=== PATIENT | female | born 1970 | race Caucasian/White ===

== ENCOUNTER → 2016-10-17 | Outpatient (CLI) | payer OTHER | LOC: CIMAGING 15:51 | PROVIDERS: ATTEND Family Medicine | DX: I82.611 Acute embolism and thrombosis of superficial veins of right upper extremity (principal); M79.601 Pain in right arm | CPT/HCPCS: 93971-PO ==

== ENCOUNTER 2016-11-11 18:35 | Emergency (ER) | payer OTHER ==
[2016-11-11 19:12] VITALS: TEMP 98.8
--- NOTE | 2016-11-11 19:18 | EDPHY ---
H & P Stated Complaint: left inner forearm pain and swelling Time Seen by Provider: 11/11/16 19:06 HPI/ROS: CHIEF COMPLAINT: Left forearm pain HISTORY OF PRESENT ILLNESS: This is a 46-year-old female who started on control pills 1 month ago. 2 weeks ago she was diagnosed with right forearm superficial thrombosis and given instructions concerning symptomatic treatment. She presents today with pain involving her left forearm. She also feels some irregularity along the blood vessel of the left forearm. She has pain with wrist and finger movement on the left. She has not taken any pain medications today. No trauma to either arm. She denies calf pain or swelling. She has not had shortness of breath or chest pain. She does not know about her family history of venous thromboembolism. She believes that a grandfather might have had a blood clot. Her mother was given Coumadin during an ICU stay, but she is not certain why. REVIEW OF SYSTEMS: A ten point review of systems was performed and is negative with the exception of the items mentioned in the HPI. - Personal History LMP (Females 10-55): 22-28 Days Ago Current Tetanus Diphtheria and Acellular Pertussis (TDAP): Yes - Medical/Surgical History Hx Asthma: No Hx Chronic Respiratory Disease: No Hx Diabetes: No Hx Cardiac Disease: No Hx Renal Disease: No Hx Cirrhosis: No Hx Alcoholism: No Hx HIV/AIDS: No Hx Splenectomy or Spleen Trauma: No Other PMH: BIPOLAR/ANXIETY/FIBROMYALGIA/MIGRAINES/TYPE II DIABETES,blood clot right forearm 1 month ago. TONSILS,APPY, C SECTION X2 - Social History Smoking Status: Never smoked Additional Social History: She works as a psychotherapist. She has 3 children. - Physical Exam Exam: General Appearance: Alert. Vital signs reviewed. Eyes: Pupils equal and round, no conjunctival injection, no discharge. Anicteric. Neck: No lymphadenopathy, supple. Respiratory: Lungs are clear to auscultation; no wheezes, rales, or rhonchi. Cardiovascular: Regular rate and rhythm; no murmur, rub, or gallop. Gastrointestinal: Abdomen is soft and nontender, no masses or organomegaly, bowel sounds normal. Skin: Warm and dry, no rashes on exposed skin, normal color. Extremities: Palpable regular cord along the anterior distal left forearm Neurological: Alert and oriented. Moving all four extremities easily and equally. Pulses: 2+ radial pulses bilaterally. Psychiatric: Normal affect. Constitutional: Initial Vital Signs Temperature (C) 37.1 C 11/11/16 19:07 Heart Rate 73 11/11/16 19:07 Respiratory Rate 16 11/11/16 19:07 Blood Pressure 112/69 11/11/16 19:07 O2 Sat (%) 95 11/11/16 19:07 O2 Delivery Mode Room Air Allergies/Adverse Reactions: bupropion HCl [From Wellbutrin] Allergy (Severe, Verified 11/11/16 19:03) Other-Enter Comments erythromycin base [Erythromycin Base] Allergy (Intermediate, Verified 11/11/16 19:03) Vomiting Home Medications: Medication Instructions Recorded Fluoxetine Hcl [Prozac] 80 cap PO DAILY 10/11/10 OLANZAPINE [ZYPREXA 20 mg] 20 mg PO HS 12/04/12 [place] Aspartate 11/11/16 Medical Decision Making - Diagnostics Imaging: Discussed imaging studies w/ will call order clerk Radiologist ED Course/Re-evaluation: Ultrasound shows was likely very superficial venous thrombus in the left forearm , below the antecubital fossa. I discussed the ultrasound results with the patient. Having received a similar diagnosis 2 weeks ago she is familiar with the treatment of superficial thrombophlebitis. I am recommending that she discontinue her control pills, given her recent thrombophlebitis. She will discuss this with her OBGYN. She will also follow up with her primary care physician, who might consider additional blood work to assess for coagulopathy. Danger signs have been reviewed with the patient. Differential Diagnosis: I considered a differential diagnosis that includes but was not limited to deep venous thrombosis, superficial thrombophlebitis, IV drug abuse (no evidence for this), lymphangitis, cellulitis, and abscess. There is nothing to indicate infection. Departure - Departure Disposition: Home, Routine, Self-Care Clinical Impression: Superficial thrombophlebitis Qualifiers: Superficial thrombophlebitis-Involved body area: upper extremity Laterality: left Qualified Code(s): I80.8 - Phlebitis and thrombophlebitis of other sites Condition: Good Instructions: Superficial Thrombophlebitis (ED) Additional Instructions: Adult Pain & Fever Control: We recommend Acetaminophen (Tylenol) and Ibuprofen (Motrin,Advil) for pain and fever control. When fever is high or pain severe, both drugs can be used at the same time, but at different intervals. Please note the time differences. Your dose is: Acetaminophen 650mg every 4 to 6 hours Ibuprofen formg every 8 hours with food OR Note: do not take Acetaminophen with Hydrocodone (Vicodin, Lortab) or Oycodone (Percocet). These medications also contain Acetaminophen. No more than 3000mg of Acetaminophen should be taken in 24 hours (for an adult). Consult OBGYN about discontinuing your control pills. Please also follow up with Dr. Dempsey. Referrals: Maria De Jesus Dempsey MD [Primary Care Provider] - As per Instructions
[2016-11-11 21:51] VITALS: BP 118/72; PULSE 72; RESP 14; O2SAT 96
== END 2016-11-11 21:37 | disposition home or self-care (01) ==
LOC: CED 18:35
DX: I80.8 Phlebitis and thrombophlebitis of other sites (principal); E11.9 Type 2 diabetes mellitus without complications
CPT/HCPCS: 93971-PO

== ENCOUNTER → 2016-12-07 | Outpatient (CLI) | payer OTHER ==
[~2016-12-07] MED LIST: DEPO METHYLPREDNISOLONE 40 MG/ML SDV ONE; IOPAMIDOL (ISOVUE 370) 100 ML BTL IV ONE; LIDOCAINE 1% 300 MG/30 ML SDV ONE; ROPIVACAINE HCL 150 MG/30 ML INJ ONE
== END ==
LOC: FIMAGING 10:17
PROVIDERS: ATTEND Orthopaedic Surgery
PROC: 3E0U3BZ Introduction of Anesthetic Agent into Joints, Percutaneous Approach (ICD-10-PCS; principal; 2016-12-07)
PROC: 3E0U33Z Introduction of Anti-inflammatory into Joints, Percutaneous Approach (ICD-10-PCS; principal; 2016-12-07)
DX: M25.551 Pain in right hip (principal)
CPT/HCPCS: 20610; J1030; J2795; Q9967

== ENCOUNTER 2016-12-17 08:23 | Emergency (ER) | payer OTHER ==
[2016-12-17 08:32] VITALS: RESP 20
--- NOTE | 2016-12-17 08:41 | EDPHY ---
H & P Stated Complaint: woke with L calf pain x 3 days; no trauma Time Seen by Provider: 12/17/16 08:32 HPI/ROS: CHIEF COMPLAINT: Left calf pain HISTORY OF PRESENT ILLNESS: The patient is a 46-year-old female who comes to the emergency department complaining of mild left calf cramping and pain. No swelling or edema. No erythema. She has had the symptoms for about 3 days unprovoked. She was concerned about DVT because she has a history of bilateral superficial thrombophlebitis in her arms that she assumed was from her control pill. She discontinued the pill but then got a Depo shot about a month ago. No abdominal pain. No chest pain or shortness of breath. REVIEW OF SYSTEMS: Constitutional: denies: chills, fever, recent illness, recent injury EENTM: denies: blurred vision, double vision, nose congestion Respiratory: denies: cough, shortness of breath Cardiac: denies: chest pain, irregular heart rate, lightheadedness, palpitations Gastrointestinal/Abdominal: denies: abdominal pain, diarrhea, nausea, vomiting, blood streaked stools Genitourinary: denies: dysuria, frequency, hematuria, pain Musculoskeletal: See HPI Skin: denies: lesions, rash, jaundice, bruising Neurological: denies: headache, numbness, paresthesia, tingling, dizziness, weakness Hematologic/Lymphatic: denies: blood clots, easy bleeding, easy bruising Immunologic/allergic: denies: HIV/AIDS, transplant EXAM: GENERAL: Well-appearing, well-nourished and in no acute distress. HEAD: Atraumatic, normocephalic. EYES: Pupils equal round and reactive to light, extraocular movements intact, sclera anicteric, conjunctiva are normal. ENT: TMs normal, nares patent, oropharynx clear without exudates. Moist mucous membranes. NECK: Normal range of motion, supple without lymphadenopathy or JVD. LUNGS: Breath sounds clear to auscultation bilaterally and equal. No wheezes rales or rhonchi. HEART: Regular rate and rhythm without murmurs, rubs or gallops. ABDOMEN: Soft, nontender, normoactive bowel sounds. No guarding, no rebound. No masses appreciated. BACK: No CVA tenderness, no spinal tenderness, step-offs or deformities EXTREMITIES: Left calf pain, no swelling, negative Homans NEUROLOGICAL: Cranial nerves II through XII grossly intact. Normal speech, normal gait. 5/5 strength, normal movement in all extremities, normal sensation PSYCH: Normal mood, normal affect. SKIN: Warm, dry, normal turgor, no visible rashes or lesions. Source: Patient Exam Limitations: No limitations - Personal History LMP (Females 10-55): Extended Cycle BCP/Inj Current Tetanus/Diphtheria Vaccine: Yes - Medical/Surgical History Hx Asthma: No Hx Chronic Respiratory Disease: No Hx Diabetes: No Hx Cardiac Disease: No Hx Renal Disease: No Hx Cirrhosis: No Hx Alcoholism: No Hx HIV/AIDS: No Hx Splenectomy or Spleen Trauma: No Other PMH: Blood Clots B Arms. BIPOLAR/ANXIETY/FIBROMYALGIA/MIGRAINES/TYPE II DIABETES,TONSILS,APPY, C SECTION X2 - Social History Smoking Status: Never smoked Alcohol Use: Sober Drug Use: None Constitutional: Initial Vital Signs Temperature (C) 36.7 C 12/17/16 08:26 Heart Rate 82 12/17/16 08:26 Respiratory Rate 20 12/17/16 08:26 Blood Pressure 107/80 12/17/16 08:26 O2 Sat (%) 87 L 12/17/16 08:26 O2 Delivery Mode Room Air Allergies/Adverse Reactions: bupropion HCl [From Wellbutrin] Allergy (Severe, Verified 12/17/16 08:32) Other-Enter Comments erythromycin base [Erythromycin Base] Allergy (Intermediate, Verified 12/17/16 08:32) Vomiting Home Medications: Medication Instructions Recorded FLUoxetine 12/17/16 [place] Carbonate 12/17/16 Rivaroxaban [Xarelto 15mg (*)] 15 mg PO DAILY #42 tab 12/17/16 Rivaroxaban [Xarelto] 20 mg PO DAILY #10 tab 12/17/16 Zyprexa 12/17/16 clonIDINE 12/17/16 oxyCODONE/APAP 5/325 [Percocet 1 - 2 tab PO Q4H PRN #10 tab 12/17/16 5/325 (*)] Medical Decision Making - Diagnostics Imaging Results: Imaging Impressions Extremity Venous Study 12/17/16 08:39 Impression: Positive deep venous thrombosis in a left calf peroneal vein. Findings and recommendations discussed with Emergency Department physician, JAMES BE at 9:38 hour, 12/17/2016. Final report concurs with initial preliminary interpretation. ED Course/Re-evaluation: 9:50 a.m. we discussed the ultrasound results. I will obtain baseline lab work instruct the patient on Xarelto. She is happy with this because she is very afraid of Coumadin. She states that her mom was allergic to Coumadin. She does have some concern about the cost of Xarelto. We discussed the 1st month free program and will give her a coupon. She will then follow up with her Dr. Maria De Jesus Dempsey for continued treatment. She is also asking about coagulopathy testing which I will defer to her primary doctor. 10:50 a.m. we discussed the lab results. We discussed medication and side effects. We have consulted case management to assist. Differential Diagnosis: Partial list of the Differential diagnosis considered include but were not limited to; DVT, muscle cramps, contusion and although unlikely based on the history and physical exam, I also considered ischemia, dissection, infection. I discussed these differential diagnoses and the plan with the patient as well as the usual and expected course. The patient understands that the diagnosis is provisional and that in medicine we are not always correct and that further workup is often warranted. Usual and customary warnings were given. All of the patient's questions were answered. The patient was instructed to return to the emergency department should the symptoms at all worsen or return, otherwise to followup with the physician as we discussed. - Data Points Laboratory Results: Laboratory Results 12/17/16 10:04 12/17/16 10:04 12/17/16 12/17/16 12/17/16 10:04 10:04 10:04 WBC 8.45 10^3/uL 10^3/uL (3.80-9.50) RBC 3.97 10^6/uL L 10^6/uL (4.18-5.33) Hgb 12.0 g/dL L g/dL (12.6-16.3) Hct 34.8 % L % (38.0-47.0) MCV 87.7 fL fL (81.5-99.8) MCH 30.2 pg pg (27.9-34.1) MCHC 34.5 g/dL g/dL (32.4-36.7) RDW 12.4 % % (11.5-15.2) Plt Count 221 10^3/uL 10^3/uL (150-400) MPV 9.0 fL fL (8.7-11.7) Neut % (Auto) 70.9 % % (39.3-74.2) Lymph % (Auto) 21.9 % % (15.0-45.0) [place] % (Auto) 5.6 % % (4.5-13.0) Eos % (Auto) 0.7 % % (0.6-7.6) Baso % (Auto) 0.4 % % (0.3-1.7) Nucleat RBC Rel Count 0.0 % % (0.0-0.2) Absolute Neuts (auto) 6.00 10^3/uL 10^3/uL (1.70-6.50) Absolute Lymphs (auto) 1.85 10^3/uL 10^3/uL (1.00-3.00) Absolute Monos (auto) 0.47 10^3/uL 10^3/uL (0.30-0.80) Absolute Eos (auto) 0.06 10^3/uL 10^3/uL (0.03-0.40) Absolute Basos (auto) 0.03 10^3/uL 10^3/uL (0.02-0.10) Absolute Nucleated RBC 0.00 10^3/uL 10^3/uL (0-0.01) Immature Gran % 0.5 % % (0.0-1.1) Immature Gran # 0.04 10^3/uL 10^3/uL (0.00-0.10) PT 13.5 SEC SEC (12.0-15.0) INR 1.06 (0.83-1.16) APTT 25.2 SEC SEC (23.0-38.0) Sodium 143 mEq/L mEq/L (134-144) Potassium 4.0 mEq/L mEq/L (3.5-5.2) Chloride 113 mEq/L H mEq/L (97-110) Carbon Dioxide 18 mEq/l L mEq/l (22-31) Anion Gap 12 mEq/L mEq/L (8-16) BUN 7 mg/dL mg/dL (7-23) Creatinine 0.7 mg/dL mg/dL (0.6-1.0) Estimated GFR > 60 Glucose 130 mg/dL H mg/dL (70-100) Calcium 9.0 mg/dL mg/dL (8.5-10.4) Total Bilirubin 0.5 mg/dL mg/dL (0.1-1.4) Conjugated Bilirubin 0.4 mg/dL mg/dL (0.0-0.5) Unconjugated Bilirubin 0.1 mg/dL mg/dL (0.0-1.1) AST 18 IU/L IU/L (14-46) ALT 34 IU/L IU/L (9-52) Alkaline Phosphatase 70 IU/L IU/L (38-126) Total Protein 6.8 g/dL g/dL (6.3-8.2) Albumin 3.9 g/dL g/dL (3.5-5.0) Medications Given: Discontinued Medications Rivaroxaban (Xarelto) 15 mg PO ONCE ONE Stop: 12/17/16 09:48 Last Admin: 12/17/16 10:02 Dose: Not Given Departure - Departure Disposition: Home, Routine, Self-Care Clinical Impression: DVT of axillary vein, acute left Condition: Fair Instructions: Rivaroxaban (By mouth), Deep Venous Thrombosis (ED) Additional Instructions: Please go over to the [facility] Emergency Room and ask to see the mental health case manager She will help you get set up with your Xalerlto prescription Referrals: Maria De Jesus Dempsey MD [Primary Care Provider] - 5-7 days, call for appt. Prescriptions: oxyCODONE/APAP 5/325 [Percocet 5/325 (*)] 1 - 2 tab PO Q4H PRN #10 tab PRN Reason: Pain, Severe Rivaroxaban [Xarelto 15mg (*)] 15 mg PO DAILY #42 tab Rivaroxaban [Xarelto] 20 mg PO DAILY #10 tab
[2016-12-17] MEDS ORDERED: RIVAROXABAN 15 MG TAB PO ONE (09:47)
[2016-12-17 10:06] LABS: % IMMATURE GRANULYOCYTES 0.5 % (0.0-1.1); ABSOLUTE IMMATURE GRANULOCYTES 0.04 10^3/uL (0.00-0.10); ADD DIFF? NO; ADD MORPH? NO; ADD SCAN? NO; ATYPICAL LYMPHOCYTE FLAG 0 (0-99); FRAGMENT RBC FLAG 0 (0-99); HEMATOCRIT 34.8 % (38.0-47.0); LEFT SHIFT FLG 0 (0-99); LIPEMIA HEMOLYSIS FLAG 90 (0-99); MEAN CELL HEMOGLOBIN 30.2 pg (27.9-34.1); MEAN CELL HEMOGLOBIN CONCENTR. 34.5 g/dL (32.4-36.7); MEAN CELL VOLUME 87.7 fL (81.5-99.8); PLATELET CLUMPS FLAG 0 (0-99); PLATELET COUNT 221 10^3/uL (150-400); RED BLOOD CELL COUNT 3.97 10^6/uL (4.18-5.33); RED CELL DISTRIBUTION WIDTH 12.4 % (11.5-15.2)
[2016-12-17 10:17] VITALS: BP 94/61; PULSE 78; TEMP 98.8; O2SAT 96
[2016-12-17 10:20] LABS: INR 1.06 (0.83-1.16); PROTIME(PATIENT) 13.5 SEC (12.0-15.0)
[2016-12-17 10:21] LABS: APTT 25.2 SEC (23.0-38.0)
[2016-12-17 10:25] LABS: ALANINE AMINOTRANSFERASE 34 IU/L (9-52); ALBUMIN 3.9 g/dL (3.5-5.0); ALKALINE PHOSPHATASE 70 IU/L (38-126); ANION GAP 12 mEq/L (8-16); ASPARTATE AMINOTRANSFERASE 18 IU/L (14-46); BILIRUBIN,TOTAL 0.5 mg/dL (0.1-1.4); BILIRUBIN-CONJUGATED 0.4 mg/dL (0.0-0.5); BILIRUBIN-UNCONJUGATED 0.1 mg/dL (0.0-1.1); CARBON DIOXIDE 18 mEq/l (22-31); CHLORIDE 113 mEq/L (97-110); CREATININE 0.7 mg/dL (0.6-1.0); GLOMERULAR FILTRATION RATE > 60; GLUCOSE 130 mg/dL (70-100); SODIUM 143 mEq/L (134-144); TOTAL PROTEIN 6.8 g/dL (6.3-8.2)
--- NOTE | 2016-12-17 12:52 | ASMTCMCOM ---
CM Note CM Note Notes: Spoke with patient who came to the [facility] ED from [facility] ED to obtain information and a card for Free 30-day trial of Xarelto. Patient has the Xarelto prescriptions. Patient provided the Xarelto free trial card and was explained how to call and activate the card. Patient says once she activates the card she will take it and the prescriptions to her [facility] in [place]. CM available for further assistance. Date Signed: 12/17/2016 12:52 PM Electronically Signed By:aSloni Dawson
== END 2016-12-17 11:08 | disposition home or self-care (01) ==
LOC: CED 08:23
DX: I82.A12 Acute embolism and thrombosis of left axillary vein (principal); E11.9 Type 2 diabetes mellitus without complications; Z79.01 Long term (current) use of anticoagulants
CPT/HCPCS: 80048-PO; 80076-PO; 85025-PO; 85610-PO; 85730-PO; 93971-PO

== ENCOUNTER 2016-12-21 12:45 | Inpatient (IN) | payer OTHER ==
[2016-12-21] MEDS ORDERED: NS 500 ML IV ONE (12:47)
--- NOTE | 2016-12-21 12:56 | CPEKG ---
Heart Rate: 78 RR Interval: 769 P-R Interval: 172 QRSD Interval: 88 QT Interval: 392 QTC Interval: 447 P [place]: 51 QRS [place]: 69 T Wave [place]: 20 EKG Severity - NORMAL ECG - EKG Impression: SINUS RHYTHM Electronically Signed By: Azul Frederick 21-Dec-2016 14:26:07
[2016-12-21 13:16] LABS: % IMMATURE GRANULYOCYTES 0.3 % (0.0-1.1); ABSOLUTE IMMATURE GRANULOCYTES 0.03 10^3/uL (0.00-0.10); ADD DIFF? NO; ADD MORPH? NO; ADD SCAN? NO; ATYPICAL LYMPHOCYTE FLAG 0 (0-99); FRAGMENT RBC FLAG 0 (0-99); HEMATOCRIT 36.2 % (38.0-47.0); HEMOGLOBIN 12.6 g/dL (12.6-16.3); LEFT SHIFT FLG 0 (0-99); LIPEMIA HEMOLYSIS FLAG 90 (0-99); MEAN CELL HEMOGLOBIN 30.7 pg (27.9-34.1); MEAN CELL HEMOGLOBIN CONCENTR. 34.8 g/dL (32.4-36.7); MEAN CELL VOLUME 88.3 fL (81.5-99.8); PLATELET CLUMPS FLAG 0 (0-99); PLATELET COUNT 266 10^3/uL (150-400); RED CELL DISTRIBUTION WIDTH 12.6 % (11.5-15.2)
[2016-12-21 13:32] LABS: ANION GAP 15 mEq/L (8-16); CALCIUM 9.3 mg/dL (8.5-10.4); CARBON DIOXIDE 16 mEq/l (22-31); CHLORIDE 109 mEq/L (97-110); CREATININE 0.7 mg/dL (0.6-1.0); GLOMERULAR FILTRATION RATE > 60; GLUCOSE 131 mg/dL (70-100); POTASSIUM 3.8 mEq/L (3.5-5.2); SODIUM 140 mEq/L (134-144)
[2016-12-21] MEDS ORDERED: IOPAMIDOL (ISOVUE 370) 100 ML BTL IV ONE (13:42)
--- NOTE | 2016-12-21 13:42 | EDPHY ---
H & P Time Seen by Provider: 12/21/16 12:47 HPI/ROS: HPI Chest pain, shortness of breath. 46-year-old female by private vehicle with her daughter. This patient was diagnosed 3 days ago with a left lower extremity DVT in our emergency department 3 days ago. She has been placed on Xarelto. She states that she developed chest pain which she described initially as left lateral with radiation to the left mid back with associated shortness of breath yesterday afternoon. This persisted an on and off nature through the afternoon and evening. She reports that she woke this morning and felt better but then the pain returned. She reports about 2-3 hours prior to arrival she developed substernal squeezing chest pain, like her heart being squeezed by a fist also with associated shortness of breath and some lightheadedness. ROS: Constitutional: No fever, no chills. No weakness. Eyes: No discharge. No changes in vision. ENT: No sore throat. No nasal congestion or rhinorrhea. Respiratory: No cough. No shortness of breath. Cardiac: No chest pain, no palpitations. Gastrointestinal: No abdominal pain, no vomiting, no diarrhea. Genitourinary: No hematuria. No dysuria or increased frequency with urination. Musculoskeletal: No back pain. No neck pain. No myalgias or arthralgias. Skin: No rashes. Neurological: No headache. No focal weakness or altered sensation. 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 Not on recent anticoagulation up until 3 days ago as above. Bipolar, anxiety, fibromyalgia, type 2 diabetes, migraine headaches, appendectomy, x2. Primary care physician is Dr. Dempsey. The patient denies any history of coagulopathy. She is currently being tested for coagulation problems by her primary care physician. Social history: Nonsmoker. Here with her daughter. Denies alcohol. Physical Exam: General Appearance: Alert, no distress. This patient is responding to questions appropriately and in full sentences. This patient appears well- hydrated and well-nourished. Eyes: Pupils equal and round no pallor or injection. No lid edema, erythema or injection. Respiratory: There are no retractions, lungs are clear to auscultation with good air movement bilaterally. Cardiovascular: Regular rate and rhythm. No murmur. Gastrointestinal: Abdomen is soft and nontender, no masses, bowel sounds normal. No focal tenderness at McBurney's point. No Santiago sign. Neurological: Motor sensory function is grossly intact. Cranial nerves are normal. Gait is normal. Skin: Warm and dry, no rashes. Musculoskeletal: Neck is supple and nontender. Extremities are symmetrical. All joints range without pain or impingement. Psychiatric: No agitation. No depression. Database: EKG: EKG time is 12:55 p.m.; EKG shows a narrow complex normal sinus rhythm with a ventricular rate of 78. The [place], QRS, QT intervals are within normal limits. There are no ST-T wave changes indicative of ischemic or injury pattern. No evidence of right heart strain. Interpreted by me. Imaging: CT angiogram of chest; significant for bilateral pulmonary embolism. Segmental and subsegmental with moderate clot burden. Results were discussed with staff radiologist Dr. Ga Miller. Procedures: Emergency department course: IV placed. She was placed on a panel monitor. Vital signs reviewed and are normal. Vital signs reviewed by myself. 1:45 p.m., patient re-evaluated. Vital signs reviewed and are normal. She denies any chest pain at this time. No shortness of breath at rest. She describes the pain is intermittent in nature as noted above. Waiting on results of CT angiogram. 2:45 p.m., patient resting comfortably at this time. Vital signs reviewed and are normal. Results of CT angiogram discussed with her. Results of blood work reviewed. Plan for admission to our hospitalist service discussed. She is in agreement with this. 2:50 p.m., spoke with Dr. Atkins, admitting hospitalist. She accepts this patient for admission. The patient's remaining emergency department course under my care has been uneventful. She was transferred in stable condition to [facility] by ambulance. Differential Diagnosis: The differential diagnosis on this patient includes but is not limited to pulmonary embolism, acute coronary syndrome, anxiety reaction. This represents a partial list of diagnoses considered. These considerations are based on history, physical exam, past history, reassessment and diagnostic testing. Smoking Status: Never smoked Constitutional: Initial Vital Signs Temperature (C) 36.6 C 12/21/16 12:48 Heart Rate 85 12/21/16 12:48 Respiratory Rate 20 12/21/16 12:48 Blood Pressure 103/83 H 12/21/16 12:48 O2 Sat (%) 98 12/21/16 12:48 O2 Delivery Mode Room Air Allergies/Adverse Reactions: bupropion HCl [From Wellbutrin] Allergy (Severe, Verified 12/21/16 12:53) Other-Enter Comments erythromycin base [Erythromycin Base] Allergy (Intermediate, Verified 12/21/16 12:53) Vomiting Home Medications: Medication Instructions Recorded FLUoxetine 40 mg PO DAILY 12/17/16 [place] Carbonate 450 mg DAILY 12/17/16 Rivaroxaban [Xarelto 15mg (*)] 15 mg PO DAILY #42 tab 12/17/16 Rivaroxaban [Xarelto] 20 mg PO DAILY #10 tab 12/17/16 Zyprexa 10 mg PO DAILY 12/17/16 clonIDINE 15 mg PO BID 12/17/16 Medical Decision Making - Diagnostics Imaging Results: Imaging Impressions Chest/Thorax CTA 12/21/16 12:58 Impression: 1. Bilateral segmental and subsegmental pulmonary emboli, most prominent in the right lung. 2. Small bilateral pleural effusions with basilar atelectasis. 3. Additional findings as above. Findings discussed with Azul Frederick MD 12/21/2016 at 1434 hours. - Data Points Laboratory Results: Laboratory Results 12/21/16 13:10 12/21/16 13:10 12/21/16 12/21/16 12/21/16 Unknown 13:10 13:10 WBC 8.83 10^3/uL 10^3/uL (3.80-9.50) RBC 4.10 10^6/uL L 10^6/uL (4.18-5.33) Hgb 12.6 g/dL g/dL (12.6-16.3) Hct 36.2 % L % (38.0-47.0) MCV 88.3 fL fL (81.5-99.8) MCH 30.7 pg pg (27.9-34.1) MCHC 34.8 g/dL g/dL (32.4-36.7) RDW 12.6 % % (11.5-15.2) Plt Count 266 10^3/uL 10^3/uL (150-400) MPV 9.0 fL fL (8.7-11.7) Neut % (Auto) 71.4 % % (39.3-74.2) Lymph % (Auto) 21.2 % % (15.0-45.0) [place] % (Auto) 6.0 % % (4.5-13.0) Eos % (Auto) 0.8 % % (0.6-7.6) Baso % (Auto) 0.3 % % (0.3-1.7) Nucleat RBC Rel Count 0.0 % % (0.0-0.2) Absolute Neuts (auto) 6.30 10^3/uL 10^3/uL (1.70-6.50) Absolute Lymphs (auto) 1.87 10^3/uL 10^3/uL (1.00-3.00) Absolute Monos (auto) 0.53 10^3/uL 10^3/uL (0.30-0.80) Absolute Eos (auto) 0.07 10^3/uL 10^3/uL (0.03-0.40) Absolute Basos (auto) 0.03 10^3/uL 10^3/uL (0.02-0.10) Absolute Nucleated RBC 0.00 10^3/uL 10^3/uL (0-0.01) Immature Gran % 0.3 % % (0.0-1.1) Immature Gran # 0.03 10^3/uL 10^3/uL (0.00-0.10) Sodium Potassium Chloride Carbon Dioxide Anion Gap BUN Creatinine Estimated GFR Glucose Calcium Creatine Kinase CK-MB (CK-2) Fraction Troponin I Beta HCG, Qual NEGATIVE [place] Pending 12/21/16 13:10 WBC RBC Hgb Hct MCV MCH MCHC RDW Plt Count MPV Neut % (Auto) Lymph % (Auto) [place] % (Auto) Eos % (Auto) Baso % (Auto) Nucleat RBC Rel Count Absolute Neuts (auto) Absolute Lymphs (auto) Absolute Monos (auto) Absolute Eos (auto) Absolute Basos (auto) Absolute Nucleated RBC Immature Gran % Immature Gran # Sodium 140 mEq/L mEq/L (134-144) Potassium 3.8 mEq/L mEq/L (3.5-5.2) Chloride 109 mEq/L mEq/L (97-110) Carbon Dioxide 16 mEq/l L mEq/l (22-31) Anion Gap 15 mEq/L mEq/L (8-16) BUN 11 mg/dL mg/dL (7-23) Creatinine 0.7 mg/dL mg/dL (0.6-1.0) Estimated GFR > 60 Glucose 131 mg/dL H mg/dL (70-100) Calcium 9.3 mg/dL mg/dL (8.5-10.4) Creatine Kinase 59 IU/L IU/L (0-156) CK-MB (CK-2) Fraction < 0.22 ng/mL ng/mL (0.00-4.55) Troponin I < 0.012 ng/mL ng/mL (0.000-0.034) Beta HCG, Qual [place] Medications Given: Discontinued Medications Sodium Chloride (Ns) 500 mls @ 1,000 mls/hr IV EDNOW ONE PRN Reason: Protocol Stop: 12/21/16 13:16 Last Admin: 12/21/16 13:23 Dose: 500 mls Departure - Departure Disposition: [facility] Acute Clinical Impression: History of DVT of lower extremity, Pulmonary embolism, Chest pain Referrals: NONE *PRIMARY CARE P,. [Unknown] - As per Instructions
[2016-12-21 13:44] LABS: TROPONIN I < 0.012 ng/mL (0.000-0.034)
[2016-12-21 13:45] LABS: CREATINE KINASE-MB FRACTION < 0.22 ng/mL (0.00-4.55)
[2016-12-21] MEDS ORDERED: HYDROmorphONE/DILAUDID 1 MG/ML INJ ONE (15:41)
[2016-12-21] MEDS ORDERED: HYDROmorphONE/DILAUDID 1 MG/ML INJ IVP PRN ×2 (15:42→17:17)
[2016-12-21] MEDS ORDERED: HYDROmorphONE/DILAUDID 1 MG/ML INJ IVP ONE (15:44)
[2016-12-21 15:53] LABS: LITHIUM 0.4 mEq/L (0.6-1.2)
[2016-12-21] MEDS ORDERED: PROMETHAZINE HCL 25 MG/ML INJ IVP PRN (17:17)
[2016-12-21] MEDS ORDERED: ONDANSETRON DISINTEGRATING 4 MG TAB PO PRN (17:17)
[2016-12-21] MEDS ORDERED: ALBUTEROL 3 ML DEYVIAL IH PRN (17:17)
[2016-12-21] MEDS ORDERED: ACETAMINOPHEN 325 MG TAB PO PRN (17:17)
[2016-12-21] MEDS ORDERED: ONDANSETRON 4 MG/2 ML VIAL IVP PRN (17:17)
[2016-12-21] MEDS ORDERED: ACETAMINOPHEN/ASA/CAFFEINE 1 EACH TAB PO PRN (18:03)
[2016-12-21] MEDS ORDERED: DIAZEPAM 10 MG TAB PO PRN (18:03)
[2016-12-21] MEDS ORDERED: WARFARIN SODIUM 7.5 MG TAB PO ONE (18:15)
[2016-12-21] MEDS: oxyCODONE IR 5 MG TAB PO PRN ×2 (18:25→21:32)
[2016-12-21] MEDS: OLANZapine DISINTEGR 10 MG TAB PO SCH (20:45)
[2016-12-21] MEDS: LITHIUM CARBONATE ER 450 MG TAB PO SCH (20:45)
[2016-12-21] MEDS: ENOXAPARIN 80 MG/0.8 ML SYR SC SCH (20:46)
--- NOTE | 2016-12-21 23:42 | GHP ---
[f rep st] HISTORY AND PHYSICAL DATE OF ADMISSION: 12/21/2016 CHIEF COMPLAINT: Shortness of breath and chest pain. HISTORY: This is a 46-year-old female with a past medical history that includes bipolar disorder and depression who presents with complaints of chest pain and shortness of breath several days after марина gnosis of a left lower extremity DVT. Patient was started on Xarelto in the ER and states she has be en compliant with that. Regardless, yesterday, she developed chest pain that is present mostly in th e left with radiation to the back and associated shortness of breath. She states she felt as if some one were squeezing her heart. She has never had similar pain in the past. She does have a history o f prior bilateral upper extremity superficial VTEs diagnosed in October and November that were thought to be related to oral contraceptive pills, which she has gone off since then. She has no other history of clots. PAST MEDICAL HISTORY: Includes: 1. Bilateral upper extremity superficial VTE. 2. Left lower extremity DVT diagnosed this week. 3. Depression. 4. Bipolar disorder. 5. Type 2 diabetes, diet controlled. 6. Cervical radiculitis. PAST SURGICAL HISTORY: Includes: 1. Appendectomy. 2. Tonsillectomy. 3. x2. 4. Breast reduction surgery. 5. Ganglion cyst in the wrist. FAMILY HISTORY: She states she has a grandfather with a clotting disorder. SOCIAL HISTORY: Patient is a nonsmoker. She denies significant drinking use. PCP is Dr. Dempsey. REVIEW OF SYSTEMS: A 10-point review of systems is obtained, negative except as per HPI. MEDICATIONS: At home include. 1. Clonidine. 2. Xarelto. 3. Olanzapine. 4. [place]. 5. Ibuprofen. 6. Fluoxetine. 7. Valium. 8. Excedrin. ALLERGIES: Bupropion and erythromycin. PHYSICAL EXAMINATION: VITAL SIGNS: BP 92/54, heart rate 64, respiratory rate 12, O2 sats 93% on elieser m air. Temperature is 37. GENERAL APPEARANCE: Well-developed/well-nourished female. She is awake and alert. She is in no acute distress. EYES: Anicteric. HENT: Oropharynx clear. CARDIOVASCULAR : Regular rate and rhythm, no MRG. PULMONARY: CTA bilaterally. Normal work of breathing. ABDOMEN : Soft, nontender, nondistended. EXTREMITIES: No clubbing, cyanosis, or edema. SKIN: Warm dry we ll perfused. NEURO/PSYCH: Oriented and appropriate. CLINICAL DATA: Labs reviewed. Significant for hematocrit 36.2. Chemistry is unremarkable. Troponi ns less than 0.012 times 2. Chest and thorax CT angiogram, personally reviewed and interpreted, showing bilateral segmental and s ubsegmental PE, most prominent in the right lung. Small bilateral pleural effusions. EKG, personally reviewed and interpreted, shows sinus rhythm. No ischemic changes. ASSESSMENT AND PLAN: This is a 46-year-old female with recently diagnosed deep venous thrombosis pre senting with bilateral pulmonary embolus. 1. Bilateral pulmonary embolus. Patient is hemodynamically stable with a relatively low clot burden and a low Pulmonary Embolism Severity Index score. She will be transitioned to Lovenox and Coumadin per her preference. She does not have significant risk factors for venous thromboembolism and has g one off control pills. She is being worked up through her primary care physician for possible hypercoagulable states and will defer further workup of this to her PCP. 2. Recent deep venous thrombosis as per above. She does not have any significant lower extremity sw elling or pain at this time. 3. Chest pain. Suspect this is related to her clot rather than other etiology. Her troponins have been negative x2 and EKG likewise unremarkable. Patient is quite concerned that there is something w dany with her heart, however, and will get a followup echocardiogram in the morning both to assess fo r any right heart strain and to evaluate for any wall motion abnormality, etc. 4. Depression and bipolar. Will continue her usual psychiatric medications. 5. Type 2 diabetes. This has been diet controlled. Her blood sugars are only mildly elevated here. 6. Disposition: Observation status. I suspect she will need less than 48 hour stay for evaluation and management of above. Patient is new to my care. Old records reviewed, summarized as per HPI and Past Medical History. Ca re plan reviewed with ER physician, including plans for anticoagulation. Further history obtained fr om patient's friend present at bedside. /[id number]/MODL
[2016-12-22] MEDS: oxyCODONE IR 5 MG TAB PO PRN ×3 (01:11→15:05)
[2016-12-22 06:26] LABS: % IMMATURE GRANULYOCYTES 0.2 % (0.0-1.1); ABSOLUTE IMMATURE GRANULOCYTES 0.01 10^3/uL (0.00-0.10); ADD DIFF? NO; ADD MORPH? NO; ADD SCAN? NO; ATYPICAL LYMPHOCYTE FLAG 10 (0-99); FRAGMENT RBC FLAG 0 (0-99); HEMATOCRIT 35.1 % (38.0-47.0); HEMOGLOBIN 11.6 g/dL (12.6-16.3); LEFT SHIFT FLG 0 (0-99); LIPEMIA HEMOLYSIS FLAG 80 (0-99); MEAN CELL HEMOGLOBIN 30.1 pg (27.9-34.1); MEAN CELL VOLUME 91.2 fL (81.5-99.8); MEAN PLATELET VOLUME 9.2 fL (8.7-11.7); PLATELET CLUMPS FLAG 10 (0-99); PLATELET COUNT 229 10^3/uL (150-400); RED BLOOD CELL COUNT 3.85 10^6/uL (4.18-5.33); RED CELL DISTRIBUTION WIDTH 12.7 % (11.5-15.2)
[2016-12-22 06:42] LABS: INR 1.23 (0.83-1.16); PROTIME(PATIENT) 15.5 SEC (12.0-15.0)
[2016-12-22 06:50] LABS: ANION GAP 9 mEq/L (8-16); CALCIUM 8.9 mg/dL (8.5-10.4); CARBON DIOXIDE 21 mEq/l (22-31); CHLORIDE 111 mEq/L (97-110); CREATININE 0.8 mg/dL (0.6-1.0); GLOMERULAR FILTRATION RATE > 60; GLUCOSE 112 mg/dL (70-100); POTASSIUM 3.9 mEq/L (3.5-5.2); SODIUM 141 mEq/L (134-144)
[2016-12-22] MEDS: FLUoxetine 20 MG CAP PO SCH (08:28)
[2016-12-22] MEDS: ENOXAPARIN 80 MG/0.8 ML SYR SC SCH (08:29)
--- NOTE | 2016-12-22 11:16 | CPEKG ---
Heart Rate: 66 RR Interval: 909 P-R Interval: 180 QRSD Interval: 90 QT Interval: 412 QTC Interval: 432 P [place]: 65 QRS [place]: 74 T Wave [place]: 36 EKG Severity - NORMAL ECG - EKG Impression: SINUS RHYTHM Electronically Signed By: Tony Haney 23-Dec-2016 12:03:49
--- NOTE | 2016-12-22 12:02 | HOSPPROG ---
Hospitalist Progress Note Assessment/Plan: # acute PE - BPs lower than normal and symptomatic - will monitor inpatient another night - cont lovenox/warfarin - failed xarelto # bipolar - lithium/prozac - well compensated # DM2 - diet controlled # dispo - inpatient; needs > 2 midnights for treatment of above Subjective: CP better today; dizzy Objective: Vital Signs Temp Pulse Resp BP Pulse Ox 36.7 C 76 18 93/61 L 97 12/22/16 08:00 12/22/16 11:41 12/22/16 11:41 12/22/16 11:41 12/22/16 11:41 Laboratory Results 12/22/16 06:05 12/22/16 06:05 12/21/16 12/22/16 12/23/16 05:59 05:59 05:59 Intake Total 700 Balance 700 PT 15.5 SEC (12.0-15.0) H 12/22/16 06:05 INR 1.23 (0.83-1.16) H 12/22/16 06:05 - Physical Exam Constitutional: no apparent distress, appears nourished Cardiovascular: regular rate and rhythym, no murmur, rub, or gallop Respiratory: no respiratory distress, no rales or rhonchi, clear to auscultation Gastrointestinal: normoactive bowel sounds, soft, non-tender abdomen ICD10 Worksheet Patient Problems: Problems Problem Status Onset History of DVT of lower extremity Acute Pulmonary embolism Acute Chest pain Acute
[2016-12-22] MEDS ORDERED: ENOXAPARIN 80 MG/0.8 ML SYR SC SCH (12:09)
--- NOTE | 2016-12-22 12:32 | ECHO ---
[id number] + + [address] : : [place] [address] : : [phone] + + Adult Echocardiographic Report + -------+ :Name: YUMIKO MOBLEY JStudy Date: 12/22/2016 09:07 AM BP: 102/55 mmHg : : Hospital Admission Number: [id number] Location: bedside: :: 1970 Gender: Female Height: 61 in : :Age: 46 yrs Race: WH Weight: 187 lb : :Reason For Study: eval for RT side strain : : BSA: 1.8 meters2 : :History: PE, chest pain : + -------+ MMode/2D Measurements & Calculations IVSd: 0.77 cm RVDd: 3.1 cm FS: 37.8 % Ao root diam: LVPWd: 0.81 cm LVIDd: 4.7 cm EDV(Teich): 2.5 cm LVIDs: 2.9 cm 101.8 ml ESV(Teich): 32.7 ml EF(Teich): 67.9 % LVLd ap4: 8.6 cm SV(MOD-sp4): EDV(MOD-sp4): 55.0 ml 81.0 ml LVLs ap4: 6.8 cm ESV(MOD-sp4): 26.0 ml EF(MOD-sp4): 67.9 % Normal Measurement Values: + + :LVIDd (3.5-5.7cm) IVSd (0.6-1.1cm) LVPWd (0.6-1.1cm) Aortic Root (2.0-3.7cm)Left Atrium (1.5-4.0cm): :LV Vol(d) (76-115ml) LV Vol(s) (29-48ml) Ejec Fraction (50-65%)PV Paul (0.6- 1.2m/s) TV Paul (0.4-1.0m/s) : :MV E Paul (0.8-1.0m/s)MV A Palu (0.3-1.0m/s)LVOT Paul (0.7-1.2m/s) Asc Ao Paul ( 0.9-1.8m/s) : + + Doppler Measurements & Calculations MV E max paul: Ao V2 max: LV V1 max: PA V2 max: 65.6 cm/sec 150.9 cm/sec 101.7 cm/sec 100.4 cm/sec MV A max paul: Ao max PG: LV V1 max PG: PA max P.2 cm/sec 9.1 mmHg 4.1 mmHg 4.0 mmHg MV E/A: 1.1 MV dec time: 0.15 sec TR max paul: 238.9 cm/sec TR max P.8 mmHg RAP systole: 5.0 mmHg RVSP(TR): 27.8 mmHg Left Ventricle The left ventricle is normal in size and function. There is normal left ventricular wall thickness. Ejection Fraction = 65%. No regional wall motion abnormalities noted. Right Ventricle The right ventricle is normal in size and function. Atria The left atrial size is normal. Right atrial size is normal. Mitral Valve The mitral valve is normal in structure and function. There is no mitral valve stenosis. There is trace to mild mitral regurgitation. Tricuspid Valve The tricuspid valve is normal in structure and function. There is no tricuspid stenosis. There is trace to mild tricuspid regurgitation. Right ventricular systolic pressure is 28mmHg. Aortic Valve The aortic valve is trileaflet. There is no aortic stenosis. There is no aortic insufficiency. Pulmonic Valve The pulmonic valve is not well visualized. Great Vessels The aortic root is normal size. Pericardium/Pleural There is no pericardial effusion. Conclusion A two-dimensional transthoracic echocardiogram with M-mode and Doppler was performed. The left ventricle is normal in size and function. Ejection Fraction = 65%. There is trace to mild mitral regurgitation. There is trace to mild tricuspid regurgitation. Right ventricular systolic pressure is 28mmHg. Final Reading Physician: Isaias Suresh signed on 12/22/2016 12:31 PM Ordering Physician: Mark Turner Performed By: Seema Blackwell
[2016-12-22] MEDS ORDERED: WARFARIN SODIUM 5 MG TAB PO SCH (16:00)
--- NOTE | 2016-12-22 17:36 | ASMTCMCOM ---
CM Note CM Note Notes: Pt. is a 46-year-old woman admitted to the ICU with a pulmonary embolism. Hx. DVT, Bipolar disorder, depression, and Type 2 diabetes. SWer met with Pt. today after Pt. transferred from ICU to PCU. RN asked SWer to meet w/ Pt. about MAPing meds and signing a new MDPOA form. Will attempt on day of d/c to MAP "five days worth of Lovenox". CM to consult w/ MD on day of d/c. Provided MDPOA form to Pt. and explained process. Pt. wanted to wait a bit before filling it out. Instructed Pt. to ask RN for CM or Director Regulatory Affairs if needed assistance filling it out. Discussed how Pt. could access financial power of staff attorney for [place]. Pt. expressed that she would never want her adopted eldest daughter to make decisions for her and that she would likely "steal her personal belongings" if she could. Pt. has two other biological teen children. Pt. likely to be independent at d/c. CM available should further needs arise. Date Signed: 12/22/2016 05:35 PM Electronically Signed By:Saloni Coronado LCSW
[2016-12-22] MEDS: ENOXAPARIN 100 MG/ML SYR SC SCH (21:34)
[2016-12-22] MEDS: LITHIUM CARBONATE ER 450 MG TAB PO SCH (21:46)
[2016-12-22] MEDS: OLANZapine DISINTEGR 10 MG TAB PO SCH (21:46)
[2016-12-23] MEDS ORDERED: ENOXAPARIN 100 MG/ML SYR SC SCH
[2016-12-23 04:45] LABS: INR 1.26 (0.83-1.16); PROTIME(PATIENT) 15.8 SEC (12.0-15.0)
[2016-12-23 07:46] VITALS: BP 104/85; PULSE 86; RESP 16; TEMP 98.1; O2SAT 95
[2016-12-23] MEDS: FLUoxetine 20 MG CAP PO SCH (08:03)
[2016-12-23] MEDS: ENOXAPARIN 100 MG/ML SYR SC SCH (08:03)
--- NOTE | 2016-12-23 08:55 | GDS ---
[f rep st] DISCHARGE SUMMARY DIAGNOSES: 1. Acute pulmonary embolus. 2. Recent diagnosis of lower extremity deep venous thrombosis. 3. Bipolar disorder. 4. Diabetes mellitus type 2. HOSPITAL COURSE: A 46-year-old female, who had recently been diagnosed with a lower extremity DVT, s tarted on Xarelto. A few days after starting this she developed significant chest pain. CT angiogra m showed acute bilateral PEs. Because of this, she has been transitioned to a Lovenox bridge to [facility]. Her pain is much better on the day of discharge. The day before discharge, she had some mildl y low blood pressures which have resolved. She is taking clonidine for menopausal symptoms, 0.1 mg a t night. I have recommended that she break that in half for a few nights, check her blood pressure i n the mornings and titrate back up to 0.1 mg. She is comfortable with this. For her bipolar disorde r, I have not changed her lithium and Prozac, this is well compensated and she is not manic on discha rge. I discussed risks and benefits of anticoagulants. Pharmacy will do warfarin teaching with her. She has been giving herself Lovenox injections in the hospital. FOLLOW UP: Primary care physician for ongoing management, consider a hypercoagulable workup or refer ral to Hematology given her Xarelto failure. BILLING: I spent more than 30 minutes on the day of discharge coordinating care. /[id number]/MODL
--- NOTE | 2016-12-23 10:37 | ASMTCMCOM ---
CM Note CM Note Notes: CM spoke w/ Rose, PAR[place]. Pt is being discharged today. CM met w/ pt to review d/c. [facility] is MAPPing meds for pt (cost for lovanox for 6 days-12 doses is $135). RN has already taught pt how to inject lovanox. Pts friend is picking pt up and bringing her to her car. Pt will f/u with coumadin clinic this Wed. Pt has not completed MDPOA form but will once she has a chance. Pt reports that she will bring it back to [facility] or [facility] PCP's office once completed. CM available for any changes. Date Signed: 12/23/2016 10:36 AM Electronically Signed By:TANMAY Christiansen
--- NOTE | 2016-12-23 12:23 | ASDISCHSUM ---
Discharge Information Plan Status:Home with No Needs Medically Cleared to Leave:12/23/2016 Discharge Date:12/23/2016 11:38 AM CM D/C Disposition:Home, Routine, Self-Care ADT D/C Disposition:Home, Routine, Self-Care Projected Discharge Date:12/23/2016 12:00 AM Transportation at D/C: Discharge Delay Reason: Follow-Up Date:12/23/2016 12:00 AM Discharge Slot: Final Diagnosis: Placement Information Patient Contact Information Contact Name:HEATHER Relationship:Friend Address: Work Phone: City: [facility] Phone: State/[place] Code: Email: Financial Information Financial Class: Primary Plan Desc:MEDICARE INPATIENT Primary Plan Number:[id number] Secondary Plan Desc: Secondary Plan Number: Assessment Information [facility] CM Progress Note CM Note CM Note Notes: Pt. is a 46-year-old woman admitted to the ICU with a pulmonary embolism. Hx. DVT, Bipolar disorder, depression, and Type 2 diabetes. Jassi met with Pt. today after Pt. transferred from ICU to PCU. RN asked Jassi to meet w/ Pt. about MAPing meds and signing a new MDPOA form. Will attempt on day of d/c to MAP "five days worth of Lovenox". CM to consult w/ MD on day of d/c. Provided MDPOA form to Pt. and explained process. Pt. wanted to wait a bit before filling it out. Instructed Pt. to ask RN for CM or Health Coordinator if needed assistance filling it out. Discussed how Pt. could access financial power of civil attorney for [place]. Pt. expressed that she would never want her adopted eldest daughter to make decisions for her and that she would likely "steal her personal belongings" if she could. Pt. has two other biological teen children. Pt. likely to be independent at d/c. CM available should further needs arise. Date Signed: 12/22/2016 05:35 PM Electronically Signed By:Saloni Coronado LCSW [facility] CM Progress Note CM Note CM Note Notes: CM spoke w/ [place] Rose. Pt is being discharged today. CM met w/ pt to review d/c. [facility] is MAPPing meds for pt (cost for lovanox for 6 days-12 doses is $135). RN has already taught pt how to inject lovanox. Pts friend is picking pt up and bringing her to her car. Pt will f/u with coumadin clinic this . Pt has not completed MDPOA form but will once she has a chance. Pt reports that she will bring it back to [facility] or [facility] PCP's office once completed. CM available for any changes. Date Signed: 12/23/2016 10:36 AM Electronically Signed By:TANMAY Christiansen Intervention Information Intervention Type:*Incorrect Registration Date of Service:12/21/2016 05:17 PM Patient Type:Inpatient Staff Member:PARIS Larson Shelly Hours:0.25 Discipline: Severity:1 (0-1 Hours) Comment:Registered inpatient; admit order writ ten for observation status. Intervention Type:*Occurence 72 Date of Service:12/21/2016 05:17 PM Patient Type:Inpatient Staff Member:PARIS Larson Shelly Hours:0.25 Discipline: Severity:1 (0-1 Hours) Comment:Occ 72 for 12/21/2016 as patient discha rged 12/23/2016 0836 9< 2 MN LOS after patie nt admission status changed from observation to inpatient).
== END 2016-12-23 11:38 | disposition home or self-care (01) | DRG 176 ==
LOC: CED 12:45 → CEDHOLD 14:48 → INTOOBSV 14:48 → F2N 17:01 → OBSVTOIN 12-22 11:58 → F2W 12-22 15:56
PROVIDERS: ADMIT Internal Medicine; ATTEND Student in an Organized Health Care Education/Training Program
DX: I26.99 Other pulmonary embolism without acute cor pulmonale (principal); E11.9 Type 2 diabetes mellitus without complications; I82.4Z2 Acute embolism and thrombosis of unspecified deep veins of left distal lower extremity; F31.9 Bipolar disorder, unspecified
CPT/HCPCS: 71275-PO; 80048-PO; 82550-PO; 82553-PO; 84484-PO; 84703-PO; 85025-PO; 96374; 97161-GP; G0378; G8978-GP-CH; G8979-GP-CH; G8980-GP-CH; J1170; J1650; Q9967

== ENCOUNTER → 2017-01-25 | Outpatient (CLI) | payer OTHER | LOC: FIMAGING 15:30 | DX: R90.89 Other abnormal findings on diagnostic imaging of central nervous system (principal); R41.3 Other amnesia ==

== ENCOUNTER → 2017-06-17 | Outpatient (CLI) | payer OTHER ==
[~2017-06-17] MED LIST changes: +DEPO METHYLPREDNISOLONE 80 MG/ML SDV ONE
== END ==
LOC: FIMAGING 10:13
PROVIDERS: ATTEND Orthopaedic Surgery
DX: M16.11 Unilateral primary osteoarthritis, right hip (principal)
CPT/HCPCS: 20610; J1040; J2795; Q9967; J1030

== ENCOUNTER → 2018-02-07 | Outpatient (CLI) | payer OTHER ==
[~2018-02-07] MED LIST changes: -DEPO METHYLPREDNISOLONE 40 MG/ML SDV ONE; +NA BICARBONATE 50 MEQ/50 ML VIAL ONE
== END ==
LOC: FIMAGING 10:05
PROVIDERS: ATTEND Orthopaedic Surgery
PROC: 3E0U33Z Introduction of Anti-inflammatory into Joints, Percutaneous Approach (ICD-10-PCS; principal; 2018-02-07)
DX: M16.11 Unilateral primary osteoarthritis, right hip (principal)
CPT/HCPCS: 20610; 77002; J1040; J2795; Q9967